=== PATIENT | female | born 1990 | race Caucasian/White ===

== ENCOUNTER 2016-06-13 20:04 | Emergency (ER) | payer OTHER ==
[~2016-06-13 20:04] MED LIST: ACET50TA PO; IBUP60TA PO; VITAPRTA PO
[2016-06-13] MEDS ORDERED: PANTOPRAZOLE 40MG INJ (PROTONIX) (C9113) As Ordered ONE (21:12)
[2016-06-13] MEDS ORDERED: ONDANSETRON 4MG/2ML VIAL (J2405) As Ordered ONE (21:13)
[2016-06-13 21:27] LABS: BASO % 0.2 % (0.0-1.0); EOS # 0.1 K/mm3 (0.0-0.50); EOS % 0.4 % (0.0-3.0); LARGE UNSTAINED CELL # 0.2 K/mm3 (0.0-0.4); LARGE UNSTAINED CELL % 1.1 % (0.0-4.0); LYMPH # 0.7 K/mm3 (1.5-6.5); LYMPH % 4.7 % (24.0-44.0); MEAN CORPUSCULAR HEMOGLOBIN 22.9 pg (27.0-33.0); MEAN CORPUSCULAR HGB CONC 31.1 g/dl (32.0-36.5); MEAN CORPUSCULAR VOLUME 73.8 fl (80.0-96.0); MONO # 0.5 K/mm3 (0.0-0.8); MONO % 3.3 % (0.0-5.0); NEUTROPHILS # 13.9 K/mm3 (1.8-7.7); NEUTROPHILS % 90.3 % (36.0-66.0); PLATELET COUNT, AUTOMATED 462 k/mm3 (150-450); RED CELL DISTRIBUTION WIDTH 15.5 % (11.5-14.5); WHITE BLOOD COUNT 15.4 K/mm3 (4.0-10.0)
[2016-06-13 21:54] LABS: ALBUMIN 4.3 GM/DL (3.2-5.2); ALBUMIN/GLOBULIN RATIO 0.98 (1.00-1.93); ALKALINE PHOSPHATASE 137 U/L (45-117); ALT/SGPT 113 U/L (12-78); AMYLASE 55 U/L (25-115); ANION GAP 11 MEQ/L (8-16); AST/SGOT 81 U/L (15-37); BILIRUBIN,DIRECT 0.2 MG/DL (0.0-0.2); BILIRUBIN,TOTAL 0.7 MG/DL (0.2-1.0); BLOOD UREA NITROGEN 14 MG/DL (7-18); CALCIUM LEVEL 9.4 MG/DL (8.5-10.1); CARBON DIOXIDE LEVEL 22 MEQ/L (21-32); CHLORIDE LEVEL 105 MEQ/L (98-107); CREATININE FOR GFR 0.84 MG/DL (0.55-1.02); GLOMERULAR FILTRATION RATE > 60.0 (>60); GLUCOSE, FASTING 103 MG/DL (70-105); POTASSIUM SERUM 4.3 MEQ/L (3.5-5.1); SODIUM LEVEL 138 MEQ/L (136-145); TOTAL PROTEIN 8.7 GM/DL (6.4-8.2)
--- NOTE | 2016-06-14 00:20 | EDDOCDS ---
Physician Documentation [facility] Name: Bella Carlisle Age: 25 yrs Sex: Female : 1990 Arrival Date: 06/13/2016 Time: 20:04 Bed I4 / M4 Private MD: ROHAN Caballero Disposition: 06/14/16 00:09 Discharged to Home/Self Care. Impression: Nausea and vomiting, Diarrhea, unspecified. - Condition is Stable. - Discharge Instructions: Food Choices to Help Relieve Diarrhea, Adult, Diarrhea, Nausea and Vomiting. - Prescriptions for Prilosec 20 mg Oral Capsule - take 1 capsule by ORAL route once daily; 10 capsule. ZOFRAN ODT 4 mg - dissolve 1 tablet by ORAL route 4 times per day As needed do not chew, do not swallow whole; 10 tablet. - Medication Reconciliation, Local Pharmacy Hours form. - Follow up: ROHAN Caballero; When: 2 - 3 days; Reason: Recheck today's complaints, Continuance of care. - Problem is new. - Symptoms have improved. Historical: - Allergies: No known drug Allergies; - Home Meds: 1. none - PMHx: GERD; - PSHx: Cholecystectomy; - Social history: Smoking status: Patient states was never smoker of tobacco. No barriers to communication noted, The patient speaks fluent Israeli, Speaks appropriately for age, Preferred Language: Israeli. - Family history: Not pertinent. - : The pt / caregiver states he / she is not on anticoagulants. Home medication list is obtained from the patient. - Exposure Risk Screening:: None identified. 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 6 in. (167.64 cm) (M); Pain 5/10; 22:26 BP 107 / 68; Pulse 116; Resp 18; Temp 100.4(O); Pulse Ox 100% on R/A; ld5 06/14 00:04 BP 115 / 74; Pulse 104; Resp 18; Temp 99.3; Pulse Ox 98% ; Pain 0/10; ajs 06/13 20:06 Body Mass Index 28.08 (78.93 kg, 167.64 cm) gr2 MDM: 06/13 21:01 Undress patient appropriately for examination ordered. ck7 21:01 UCG by Nursing ordered. ck7 21:01 IV Saline Lock ordered. ck7 21:01 NS 0.9% 1000 ml IV at bolus once ordered. ck7 21:01 NS 0.9% 1000 ml IV at bolus once ordered. ck7 21:01 pantoprazole 40 mg IV at bolus once ordered. ck7 21:01 Ondansetron 4 mg IVP once ordered. ck7 21:02 Amylase Ordered. EDMS 21:02 Basic Metabolic Profile Ordered. EDMS 21:02 CBC with Diff Ordered. EDMS 21:02 Lipase Ordered. EDMS 21:02 Liver Profile Ordered. EDMS 21:02 Urinalysis Ordered. EDMS 21:02 Urine Culture Ordered. EDMS 21:03 NOTHING BY MOUTH+DIET ordered. EDMS 21:13 Financial registration complete. ks16 21:15 [facility] Payment Agreement was scanned into [employer] and attached to record. ks16 22:25 CBC with Diff Reviewed. ck7 22:25 Liver Profile Reviewed. ck7 22:25 Urinalysis Reviewed. ck7 22:25 Amylase Reviewed. ck7 22:25 Basic Metabolic Profile Reviewed. ck7 22:25 Lipase Reviewed. ck7 23:17 Undo -Financial registration. ks16 23:44 Fluid Challenge ordered. ck7 06/14 00:07 Financial registration complete. pm4 Point of Care Testing: Urine : 06/13 21:03 hCG Reading: Negative; Control Reading: Positive; cln Ranges: Administered Medications: 21:24 Drug: NS 0.9% 1000 ml [sodium chloride 0.9 % intravenous solution] Route: IV; Rate: ld5 bolus; Site: right antecubital; 22:39 Follow up: IV Status: Completed infusion; IV Intake: 1000ml ld5 21:24 Drug: pantoprazole 40 mg [pantoprazole 40 mg intravenous solution] Route: IV; Rate: ld5 bolus; Site: right antecubital; 21:24 Drug: Ondansetron 4 mg [ondansetron HCl 2 mg/mL intravenous solution (2 mL)] Route: ld5 IVP; Site: right antecubital; 22:39 Follow up: Response: Nausea is decreased ld5 22:39 Drug: NS 0.9% 1000 ml [sodium chloride 0.9 % intravenous solution] Route: IV; Rate: ld5 bolus; Site: right antecubital; 23:52 Follow up: IV Status: Completed infusion rw1 Signatures: Dispatcher [employer] EDNC Jack Cisse LPN LPN rw1 Malinda Gilliland RN RN lf1 Chari Palmer RN RN [facility] Paul Gaffney, RPA-C RPA-Cck7 Cher Armstrong, Reg Reg ks16 Osbaldo Ospina, Reg Reg pm4 Erica Fortune RN ld5 The chart was reviewed and I authenticate all verbal orders and agree with the evaluation and treatment provided.Corrections: (The following items were deleted from the chart) 20:19 20:18 PMHx: none; lf1 lf1 Attachments: 21:15 [facility] Payment Agreement ks16 MTDD
--- NOTE | 2016-06-14 00:20 | EDDOCDS ---
Nurse's Notes [facility] Name: Bella Carlisle Age: 25 yrs Sex: Female : 1990 Arrival Date: 06/13/2016 Time: 20:04 Bed I4 / M4 Private MD: ROHAN Caballero Diagnosis: Nausea and vomiting;Diarrhea, unspecified Presentation: 06/13 20:14 Presenting complaint: Patient states: Diarrhea, nausea sore throat and fever that has lf1 been ongoing since last night. Pain is currently 4/10 and goes up to 8/10 if she "does anything". Pt states "I know I'm dehydrated and I have the stomach flu". Adult Sepsis Screening: The patient does not have new or worsening altered mentation. Patient's respiratory rate is less than 22. Systolic blood pressure is greater than 100. Patient has a qSOFA score of 0- Negative Sepsis Screen. Suicide/Homicide risk assessment- the patient denies having any suicidal and/or homicidal ideations and does not present with any other emotional, behavioral or mental health complaints. Status: The patient is a dependent. Transition of care: patient was not received from another setting of care. 20:14 Acuity: LAUREN Level 3 lf1 20:14 Method Of Arrival: Walkin/Carried/Asstd lf1 Triage Assessment: 20:18 General: Appears uncomfortable, Behavior is cooperative. Pain: Location: abdomen Pain lf1 currently is 4 out of 10 on a pain scale. Pt Declines HIV testing. Neurological: Level of Consciousness is awake, alert, Oriented to person, place, time. EENT: No deficits noted. Respiratory: Respiratory effort is even, unlabored. GI: Denies nausea, vomiting. Derm: Skin is normal. Injury Description: No known injury. 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 none - PMHx: GERD; - PSHx: Cholecystectomy; - Social history: Smoking status: Patient states was never smoker of tobacco. No barriers to communication noted, The patient speaks fluent Bruneian, Speaks appropriately for age, Preferred Language: Bruneian. - Family history: Not pertinent. - : The pt / caregiver states he / she is not on anticoagulants. Home medication list is obtained from the patient. - Exposure Risk Screening:: None identified. Screenin:20 Screening information is obtained from the patient. Fall risk: No risks identified. lf1 Assistance ADL's: requires no assistance with activities of daily living. Abuse/DV Screen: The patient / caregiver reports he/she is: not in a situation that causes fear, pain or injury. Nutritional screening: No deficits noted. Advance Directives: Currently, there is no health care proxy. There is no active DNR order. There is no living will. home support is adequate. Assessment: 21:22 General: Appears in no apparent distress, comfortable, Behavior is cooperative. Pain: cjh Denies pain. Neurological: Level of Consciousness is awake, alert, Oriented to person, place. Respiratory: Airway is patent Respiratory effort is even, unlabored, Respiratory pattern is regular, symmetrical. GI: Abdomen is non- distended Bowel sounds present X 4 quads. Abd is soft and non tender X 4 quads. 22:26 General: Pt laying quietly in bed. Fluids infusing. Pt denies further episodes of ld5 nausea. When asked about pain, pt states "my muscles ache but I think that is from my body relaxing after all of the shaking I was doing". Will continue to monitor. 22:39 General: Second bolus infusing. Pt resting quietly in bed. Will continue to monitor. ld5 06/14 00:17 Reassessment: Patient appears in no apparent distress at this time. Patient denies pain rw1 at this time. Patient states feeling better. Patient states symptoms have improved. Vital Signs: 06/13 20:06 BP 116 / 78; Pulse 137; Resp 18 S; Temp 100.6(O); Pulse Ox 98% on R/A; Weight 78.93 kg gr2 (M); Height 5 ft. 6 in. (167.64 cm) (M); Pain 5/10; 22:26 BP 107 / 68; Pulse 116; Resp 18; Temp 100.4(O); Pulse Ox 100% on R/A; ld5 06/14 00:04 BP 115 / 74; Pulse 104; Resp 18; Temp 99.3; Pulse Ox 98% ; Pain 0/10; ajs 06/13 20:06 Body Mass Index 28.08 (78.93 kg, 167.64 cm) gr2 Vitals: 06/13 20:06 Log In Time: June 13, 2016 at 20:06. gr2 ED Course: 20:05 Patient visited by Noemi Grant. gr2 20:05 Patient moved to Waiting gr2 20:[address] [facility] is Private Physician. gr2 20:09 Patient visited by Noemi Grant. gr2 20:09 Patient moved to Pre RCE gr2 20:17 Triage Initiated lf1 20:22 Patient moved to Triage 2 cln 20:32 Paul Gaffney RPA-C is PHCP. ck7 20:32 Carlos Rodriguez DO is Attending Physician. ck7 20:32 Patient visited by Paul Gaffney RPA-C. ck7 20:57 Patient moved to I4 / M4 cz 20:58 Patient visited by Viola Ellis. ajs 20:58 Pt greeted and oriented to ED. Patient advised of names of staff involved in care, ajs location of call genao, wait times and NPO status. Accompanied by Family Member, Patient has correct armband on for positive identification. Placed in gown. Bed in low position. Call light in reach. Side rails up X 1. 21:03 Patient visited by Brittany Tay PCA. cln 21:03 Urine Culture Sent. cln 21:03 Urinalysis Sent. cln 21:05 Patient visited by Viola Ellis. ajs 21:15 [facility] Payment Agreement was scanned into [employer] and attached to record. ks16 21:21 Amylase Sent. cjh 21:21 Basic Metabolic Profile Sent. cjh 21:21 CBC with Diff Sent. cjh 21:21 Lipase Sent. cjh 21:21 Liver Profile Sent. cjh 21:24 Patient visited by Erica Fortune,NENA. ld5 22:01 Patient visited by Paul Gaffney RPA-C. ck7 22:28 Patient visited by Erica Fortune,NENA. ld5 22:40 Patient visited by Erica Fortune,NENA. ld5 23:13 Patient visited by Paul Gaffney RPA-C. ck7 23:44 Patient visited by Paul Gaffney RPA-C. ck7 06/14 00:04 Patient visited by Viola Ellis. ajs 00:[address] [facility] is Referral Physician. ck7 00:17 The patient / caregiver is instructed regarding the plan of care and ED course. rw1 00:17 Discontinued IV lock intact, bleeding controlled, pressure dressing applied, No rw1 redness/swelling at site. No procedures done that require assistance. Administered Medications: 06/13 21:24 Drug: NS 0.9% 1000 ml [sodium chloride 0.9 % intravenous solution] Route: IV; Rate: ld5 bolus; Site: right antecubital; 22:39 Follow up: IV Status: Completed infusion; IV Intake: 1000ml ld5 21:24 Drug: pantoprazole 40 mg [pantoprazole 40 mg intravenous solution] Route: IV; Rate: ld5 bolus; Site: right antecubital; 21:24 Drug: Ondansetron 4 mg [ondansetron HCl 2 mg/mL intravenous solution (2 mL)] Route: ld5 IVP; Site: right antecubital; 22:39 Follow up: Response: Nausea is decreased ld5 22:39 Drug: NS 0.9% 1000 ml [sodium chloride 0.9 % intravenous solution] Route: IV; Rate: ld5 bolus; Site: right antecubital; 23:52 Follow up: IV Status: Completed infusion rw1 Point of Care Testing: Urine : 21:03 hCG Reading: Negative; Control Reading: Positive; cln Ranges: Intake: 22:39 IV: 1000.00ml; Total: 1000.00ml. ld5 23:53 IV: 2000.00ml (NS); Total: 3000.00ml. rw1 Order Results: Lab Order: Amylase; SPEC'M 06/13/16 21:14 Test: AMYLASE; Value: 55; Range: 25-115; Units: U/L; Status: F Lab Order: Basic Metabolic Profile; SPEC'M 06/13/16 21:14 Test: GLUCOSE, FASTING; Value: 103; Range: 70-105; Units: MG/DL; Status: F Test: BLOOD UREA NITROGEN; Value: 14; Range: 7-18; Units: MG/DL; Status: F Test: CREATININE FOR GFR; Value: 0.84; Range: 0.55-1.02; Units: MG/DL; Status: F Test: GLOMERULAR FILTRATION RATE; Value: > 60.0; Range: >60; Status: F Test: SODIUM LEVEL; Value: 138; Range: 136-145; Units: MEQ/L; Status: F Test: POTASSIUM SERUM; Value: 4.3; Range: 3.5-5.1; Units: MEQ/L; Status: F Test: CHLORIDE LEVEL; Value: 105; Range: 98-107; Units: MEQ/L; Status: F Test: CARBON DIOXIDE LEVEL; Value: 22; Range: 21-32; Units: MEQ/L; Status: F Test: ANION GAP; Value: 11; Range: 8-16; Units: MEQ/L; Status: F Test: CALCIUM LEVEL; Value: 9.4; Range: 8.5-10.1; Units: MG/DL; Status: F Test Note: ; Units are mL/min/1.73 m2 Chronic Kidney Disease Staging per NKF: Stage I & II GFR >=60 Normal to Mildly Decreased Stage III GFR 30-59 Moderately Decreased Stage IV GFR 15-29 Severely Decreased Stage V GFR <15 Very Little GFR Left ESRD GFR <15 on AVIONICS INTEGRATION ENGINEER Lab Order: CBC with Diff; SPEC'M 06/13/16 21:14 Test: WHITE BLOOD COUNT; Value: 15.4; Range: 4.0-10.0; Abnormal: Above high normal; Units: K/mm3; Status: F Test: RED BLOOD COUNT; Value: 5.88; Range: 4.00-5.40; Abnormal: Above high normal; Units: M/mm3; Status: F Test: HEMOGLOBIN; Value: 13.5; Range: 12.0-16.0; Units: g/dl; Status: F Test: HEMATOCRIT; Value: 43.4; Range: 36.0-47.0; Units: %; Status: F Test: MEAN CORPUSCULAR VOLUME; Value: 73.8; Range: 80.0-96.0; Abnormal: Below low normal; Units: fl; Status: F Test: MEAN CORPUSCULAR HEMOGLOBIN; Value: 22.9; Range: 27.0-33.0; Abnormal: Below low normal; Units: pg; Status: F Test: MEAN CORPUSCULAR HGB CONC; Value: 31.1; Range: 32.0-36.5; Abnormal: Below low normal; Units: g/dl; Status: F Test: RED CELL DISTRIBUTION WIDTH; Value: 15.5; Range: 11.5-14.5; Abnormal: Above high normal; Units: %; Status: F Test: PLATELET COUNT, AUTOMATED; Value: 462; Range: 150-450; Abnormal: Above high normal; Units: k/mm3; Status: F Test: NEUTROPHILS %; Value: 90.3; Range: 36.0-66.0; Abnormal: Above high normal; Units: %; Status: F Test: LYMPH %; Value: 4.7; Range: 24.0-44.0; Abnormal: Below low normal; Units: %; Status: F Test: MONO %; Value: 3.3; Range: 0.0-5.0; Units: %; Status: F Test: EOS %; Value: 0.4; Range: 0.0-3.0; Units: %; Status: F Test: BASO %; Value: 0.2; Range: 0.0-1.0; Units: %; Status: F Test: LARGE UNSTAINED CELL %; Value: 1.1; Range: 0.0-4.0; Units: %; Status: F Test: NEUTROPHILS #; Value: 13.9; Range: 1.8-7.7; Abnormal: Above high normal; Units: K/mm3; Status: F Test: LYMPH #; Value: 0.7; Range: 1.5-6.5; Abnormal: Below low normal; Units: K/mm3; Status: F Test: MONO #; Value: 0.5; Range: 0.0-0.8; Units: K/mm3; Status: F Test: EOS #; Value: 0.1; Range: 0.0-0.50; Units: K/mm3; Status: F Test: BASO #; Value: 0.0; Range: 0.0-0.2; Units: K/mm3; Status: F Test: LARGE UNSTAINED CELL #; Value: 0.2; Range: 0.0-0.4; Units: K/mm3; Status: F Lab Order: Lipase; SPEC' 06/13/16 21:14 Test: LIPASE; Value: 162; Range: 73-393; Units: U/L; Status: F Lab Order: Liver Profile; SPEC' 06/13/16 21:14 Test: AST/SGOT; Value: 81; Range: 15-37; Abnormal: Above high normal; Units: U/L; Status: F Test: ALT/SGPT; Value: 113; Range: 12-78; Abnormal: Above high normal; Units: U/L; Status: F Test: ALKALINE PHOSPHATASE; Value: 137; Range: 45-117; Abnormal: Above high normal; Units: U/L; Status: F Test: BILIRUBIN,TOTAL; Value: 0.7; Range: 0.2-1.0; Units: MG/DL; Status: F Test: BILIRUBIN,DIRECT; Value: 0.2; Range: 0.0-0.2; Units: MG/DL; Status: F Test: TOTAL PROTEIN; Value: 8.7; Range: 6.4-8.2; Abnormal: Above high normal; Units: GM/DL; Status: F Test: ALBUMIN; Value: 4.3; Range: 3.2-5.2; Units: GM/DL; Status: F Test: ALBUMIN/GLOBULIN RATIO; Value: 0.98; Range: 1.00-1.93; Abnormal: Below low normal; Status: F Lab Order: Urinalysis; [facility] 06/13/16 20:42 Test: APPEARANCE, URINE; Value: TURBID; Range: CLEAR; Abnormal: Above high normal; Status: F Test: COLOR, URINE; Value: YELLOW; Range: YELLOW; Status: F Test: PH,URINE; Value: 5.0; Range: 5.0-9.0; Units: UNITS; Status: F Test: SPECIFIC GRAVITY URINE AUTO; Value: 1.027; Range: 1.002-1.035; Status: F Test: PROTEIN, URINE AUTO; Value: 1+; Range: NEGATIVE; Abnormal: Above high normal; Units: mg/dL; Status: F Test: GLUCOSE, URINE (UA) AUTO; Value: NEGATIVE; Range: NEGATIVE; Units: mg/dL; Status: F Test: KETONE, URINE AUTO; Value: NEGATIVE; Range: NEGATIVE; Units: mg/dL; Status: F Test: UROBILINOGEN, URINE AUTO; Value: 0.2; Range: 0.0-2.0; Units: mg/dL; Status: F Test: BILIRUBIN, URINE AUTO; Value: NEGATIVE; Range: NEGATIVE; Status: F Test: NITRITE, URINE AUTO; Value: NEGATIVE; Range: NEGATIVE; Status: F Test: LEUKOCYTE ESTERASE, URINE AUTO; Value: 1+; Range: NEGATIVE; Abnormal: Above high normal; Status: F Test: BLOOD, URINE BLOOD; Value: 1+; Range: NEGATIVE; Abnormal: Above high normal; Status: F Test: WBC, URINE AUTO; Value: 12; Range: 0-3; Abnormal: Above high normal; Units: /HPF; Status: F Test: RBC, URINE AUTO; Value: 3; Range: 0-3; Units: /HPF; Status: F Test: BACTERIA, URINE AUTO; Value: 1+; Range: NEGATIVE; Abnormal: Above high normal; Status: F Test: SQUAMOUS EPITHELIAL CELL UR AU; Value: 18; Range: 0-6; Units: /HPF; Status: F Test: MUCUS, URINE; Value: LARGE; Range: NEGATIVE; Status: F Test: HYALINE CAST, URINE AUTO; Value: 0; Range: 0-1; Units: /LPF; Status: F Test: AMORPHOUS SEDIMENT; Value: LARGE; Range: NEGATIVE; Abnormal: Above high normal; Status: F Outcome: 06/14 00:09 Discharge ordered by Provider. ck7 00:17 Discharge Assessment: Patient awake, alert and oriented x 3. No cognitive and/or rw1 functional deficits noted. Patient verbalized understanding of disposition instructions. patient administered narcotics - no. The following High Risk Discharge criteria are identified: None. Discharged to home ambulatory, with significant other. Condition: stable Condition: improved. Discharge instructions given to patient, Instructed on discharge instructions, follow up and referral plans. medication usage, Demonstrated understanding of instructions, medications, Pt was receptive of discharge instructions/ teaching. Prescriptions given X 2. No special radiology studies were completed. Property sent home with patient. 00:19 Patient left the ED. rw1 Signatures: Nikhil Doyle, NENA RN Jack Roque LPN AUTOMATIC LATHE OPERATOR rw1 Malinda Gilliland RN RN lf1 Erica Fortune,RN RN ld5 Viola Ellis Jane, RN RN cjPaul Traylor, RPA-C RPA-Cck7 Noemi Grant gr2 Cher Armstrong, Reg Reg ks16 Brittany Tay, MANAGEMENT ACCOUNTS MANAGER MANAGEMENT ACCOUNTS MANAGER cln Corrections: (The following items were deleted from the chart) 06/13 20:19 20:18 PMHx: none; lf1 lf1 MTDD
--- NOTE | 2016-06-16 01:20 | EDDOCDS ---
Physician Documentation [facility] Name: Bella Carlisle Age: 25 yrs Sex: Female : 1990 Arrival Date: 06/13/2016 Time: 20:04 Bed I4 / M4 Private MD: ROHAN Caballero Disposition: 06/14/16 00:09 Discharged to Home/Self Care. Impression: Nausea and vomiting, Diarrhea, unspecified. - Condition is Stable. - Discharge Instructions: Food Choices to Help Relieve Diarrhea, Adult, Diarrhea, Nausea and Vomiting. - Prescriptions for Prilosec 20 mg Oral Capsule - take 1 capsule by ORAL route once daily; 10 capsule. ZOFRAN ODT 4 mg - dissolve 1 tablet by ORAL route 4 times per day As needed do not chew, do not swallow whole; 10 tablet. - Medication Reconciliation, Local Pharmacy Hours form. - Follow up: ROHAN Caballero; When: 2 - 3 days; Reason: Recheck today's complaints, Continuance of care. - Problem is new. - Symptoms have improved. Historical: - Allergies: No known drug Allergies; - Home Meds: 1. none - PMHx: GERD; - PSHx: Cholecystectomy; - Social history: Smoking status: Patient states was never smoker of tobacco. No barriers to communication noted, The patient speaks fluent Paraguayan, Speaks appropriately for age, Preferred Language: Paraguayan. - Family history: Not pertinent. - : The pt / caregiver states he / she is not on anticoagulants. Home medication list is obtained from the patient. - Exposure Risk Screening:: None identified. 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 6 in. (167.64 cm) (M); Pain 5/10; 22:26 BP 107 / 68; Pulse 116; Resp 18; Temp 100.4(O); Pulse Ox 100% on R/A; ld5 06/14 00:04 BP 115 / 74; Pulse 104; Resp 18; Temp 99.3; Pulse Ox 98% ; Pain 0/10; ajs 06/13 20:06 Body Mass Index 28.08 (78.93 kg, 167.64 cm) gr2 MDM: 06/13 21:01 Undress patient appropriately for examination ordered. ck7 21:01 UCG by Nursing ordered. ck7 21:01 IV Saline Lock ordered. ck7 21:01 NS 0.9% 1000 ml IV at bolus once ordered. ck7 21:01 NS 0.9% 1000 ml IV at bolus once ordered. ck7 21:01 pantoprazole 40 mg IV at bolus once ordered. ck7 21:01 Ondansetron 4 mg IVP once ordered. ck7 21:02 Amylase Ordered. EDMS 21:02 Basic Metabolic Profile Ordered. EDMS 21:02 CBC with Diff Ordered. EDMS 21:02 Lipase Ordered. EDMS 21:02 Liver Profile Ordered. EDMS 21:02 Urinalysis Ordered. EDMS 21:02 Urine Culture Ordered. EDMS 21:03 NOTHING BY MOUTH+DIET ordered. EDMS 21:13 Financial registration complete. ks16 21:15 [facility] Payment Agreement was scanned into [employer] and attached to record. ks16 22:25 CBC with Diff Reviewed. ck7 22:25 Liver Profile Reviewed. ck7 22:25 Urinalysis Reviewed. ck7 22:25 Amylase Reviewed. ck7 22:25 Basic Metabolic Profile Reviewed. ck7 22:25 Lipase Reviewed. ck7 23:17 Undo -Financial registration. ks16 23:44 Fluid Challenge ordered. ck7 06/14 00:07 Financial registration complete. pm4 11:00 T-Sheet-- Draft Copy was scanned into [employer] and attached to record. gb Point of Care Testing: Urine : 06/13 21:03 hCG Reading: Negative; Control Reading: Positive; cln Ranges: Administered Medications: 21:24 Drug: NS 0.9% 1000 ml [sodium chloride 0.9 % intravenous solution] Route: IV; Rate: ld5 bolus; Site: right antecubital; 22:39 Follow up: IV Status: Completed infusion; IV Intake: 1000ml ld5 21:24 Drug: pantoprazole 40 mg [pantoprazole 40 mg intravenous solution] Route: IV; Rate: ld5 bolus; Site: right antecubital; 21:24 Drug: Ondansetron 4 mg [ondansetron HCl 2 mg/mL intravenous solution (2 mL)] Route: ld5 IVP; Site: right antecubital; 22:39 Follow up: Response: Nausea is decreased ld5 22:39 Drug: NS 0.9% 1000 ml [sodium chloride 0.9 % intravenous solution] Route: IV; Rate: ld5 bolus; Site: right antecubital; 23:52 Follow up: IV Status: Completed infusion rw1 Signatures: Dispatcher [employer] EDMS Alma Delia Hendrickson, Reg Reg gb Jack Cisse,COURIER COURIER rw1 Malinda GillilandRN RN lf1 Chari Palmer,RN RN [facility] Paul Gaffney, RPA-C RPA-Cck7 Cher Armstrong, Reg Reg ks16 Osbaldo Ospina, Reg Reg pm4 Erica Fortune RN ld5 The chart was reviewed and I authenticate all verbal orders and agree with the evaluation and treatment provided.Corrections: (The following items were deleted from the chart) 20:19 20:18 PMHx: none; lf1 lf1 Attachments: 21:15 [facility] Payment Agreement ks16 06/14 11:00 T-Sheet-- Draft Copy gb Chart Complete MTDD
--- NOTE | 2016-06-16 01:20 | EDDOCDS ---
Nurse's Notes [facility] Name: Bella Carlisle Age: 25 yrs Sex: Female : 1990 Arrival Date: 06/13/2016 Time: 20:04 Bed I4 / M4 Private MD: ROHAN Caballero Diagnosis: Nausea and vomiting;Diarrhea, unspecified Presentation: 06/13 20:14 Presenting complaint: Patient states: Diarrhea, nausea sore throat and fever that has lf1 been ongoing since last night. Pain is currently 4/10 and goes up to 8/10 if she "does anything". Pt states "I know I'm dehydrated and I have the stomach flu". Adult Sepsis Screening: The patient does not have new or worsening altered mentation. Patient's respiratory rate is less than 22. Systolic blood pressure is greater than 100. Patient has a qSOFA score of 0- Negative Sepsis Screen. Suicide/Homicide risk assessment- the patient denies having any suicidal and/or homicidal ideations and does not present with any other emotional, behavioral or mental health complaints. Status: The patient is a dependent. Transition of care: patient was not received from another setting of care. 20:14 Acuity: LAUREN Level 3 lf1 20:14 Method Of Arrival: Walkin/Carried/Asstd lf1 Triage Assessment: 20:18 General: Appears uncomfortable, Behavior is cooperative. Pain: Location: abdomen Pain lf1 currently is 4 out of 10 on a pain scale. Pt Declines HIV testing. Neurological: Level of Consciousness is awake, alert, Oriented to person, place, time. EENT: No deficits noted. Respiratory: Respiratory effort is even, unlabored. GI: Denies nausea, vomiting. Derm: Skin is normal. Injury Description: No known injury. 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 none - PMHx: GERD; - PSHx: Cholecystectomy; - Social history: Smoking status: Patient states was never smoker of tobacco. No barriers to communication noted, The patient speaks fluent [place], Speaks appropriately for age, Preferred Language: Tanzanian. - Family history: Not pertinent. - : The pt / caregiver states he / she is not on anticoagulants. Home medication list is obtained from the patient. - Exposure Risk Screening:: None identified. Screenin:20 Screening information is obtained from the patient. Fall risk: No risks identified. lf1 Assistance ADL's: requires no assistance with activities of daily living. Abuse/DV Screen: The patient / caregiver reports he/she is: not in a situation that causes fear, pain or injury. Nutritional screening: No deficits noted. Advance Directives: Currently, there is no health care proxy. There is no active DNR order. There is no living will. home support is adequate. Assessment: 21:22 General: Appears in no apparent distress, comfortable, Behavior is cooperative. Pain: cjh Denies pain. Neurological: Level of Consciousness is awake, alert, Oriented to person, place. Respiratory: Airway is patent Respiratory effort is even, unlabored, Respiratory pattern is regular, symmetrical. GI: Abdomen is non- distended Bowel sounds present X 4 quads. Abd is soft and non tender X 4 quads. 22:26 General: Pt laying quietly in bed. Fluids infusing. Pt denies further episodes of ld5 nausea. When asked about pain, pt states "my muscles ache but I think that is from my body relaxing after all of the shaking I was doing". Will continue to monitor. 22:39 General: Second bolus infusing. Pt resting quietly in bed. Will continue to monitor. ld5 06/14 00:17 Reassessment: Patient appears in no apparent distress at this time. Patient denies pain rw1 at this time. Patient states feeling better. Patient states symptoms have improved. Vital Signs: 06/13 20:06 BP 116 / 78; Pulse 137; Resp 18 S; Temp 100.6(O); Pulse Ox 98% on R/A; Weight 78.93 kg gr2 (M); Height 5 ft. 6 in. (167.64 cm) (M); Pain 5/10; 22:26 BP 107 / 68; Pulse 116; Resp 18; Temp 100.4(O); Pulse Ox 100% on R/A; ld5 06/14 00:04 BP 115 / 74; Pulse 104; Resp 18; Temp 99.3; Pulse Ox 98% ; Pain 0/10; ajs 06/13 20:06 Body Mass Index 28.08 (78.93 kg, 167.64 cm) gr2 Vitals: 06/13 20:06 Log In Time: June 13, 2016 at 20:06. gr2 ED Course: 20:05 Patient visited by Noemi Grant. gr2 20:05 Patient moved to Waiting gr2 20:06 Federico [facility] is Private Physician. gr2 20:09 Patient visited by Noemi Grant. gr2 20:09 Patient moved to Pre RCE gr2 20:17 Triage Initiated lf1 20:22 Patient moved to Triage 2 cln 20:32 Paul Gaffney RPA-C is PHCP. ck7 20:32 Carlos Rodriguez DO is Attending Physician. ck7 20:32 Patient visited by Paul Gaffney RPA-C. ck7 20:57 Patient moved to I4 / M4 cz 20:58 Patient visited by Viola Ellis. ajs 20:58 Pt greeted and oriented to ED. Patient advised of names of staff involved in care, ajs location of call genao, wait times and NPO status. Accompanied by Family Member, Patient has correct armband on for positive identification. Placed in gown. Bed in low position. Call light in reach. Side rails up X 1. 21:03 Patient visited by Brittany Tay PCA. cln 21:03 Urine Culture Sent. cln 21:03 Urinalysis Sent. cln 21:05 Patient visited by Viola Ellis. ajs 21:15 [facility] Payment Agreement was scanned into [employer] and attached to record. ks16 21:21 Amylase Sent. cjh 21:21 Basic Metabolic Profile Sent. cjh 21:21 CBC with Diff Sent. cjh 21:21 Lipase Sent. cjh 21:21 Liver Profile Sent. cjh 21:24 Patient visited by Erica Fortune,NENA. ld5 22:01 Patient visited by Paul Gaffney RPA-C. ck7 22:28 Patient visited by Erica Fortune,NENA. ld5 22:40 Patient visited by Erica Fortune,NENA. ld5 23:13 Patient visited by Paul Gaffney RPA-C. ck7 23:44 Patient visited by Paul Gaffney RPA-C. ck7 06/14 00:04 Patient visited by Viola Ellis. ajs 00:09 Federico [facility] is Referral Physician. ck7 00:17 The patient / caregiver is instructed regarding the plan of care and ED course. rw1 00:17 Discontinued IV lock intact, bleeding controlled, pressure dressing applied, No rw1 redness/swelling at site. No procedures done that require assistance. 11:00 T-Sheet-- Draft Copy was scanned into [employer] and attached to record. gb Administered Medications: 06/13 21:24 Drug: NS 0.9% 1000 ml [sodium chloride 0.9 % intravenous solution] Route: IV; Rate: ld5 bolus; Site: right antecubital; 22:39 Follow up: IV Status: Completed infusion; IV Intake: 1000ml ld5 21:24 Drug: pantoprazole 40 mg [pantoprazole 40 mg intravenous solution] Route: IV; Rate: ld5 bolus; Site: right antecubital; 21:24 Drug: Ondansetron 4 mg [ondansetron HCl 2 mg/mL intravenous solution (2 mL)] Route: ld5 IVP; Site: right antecubital; 22:39 Follow up: Response: Nausea is decreased ld5 22:39 Drug: NS 0.9% 1000 ml [sodium chloride 0.9 % intravenous solution] Route: IV; Rate: ld5 bolus; Site: right antecubital; 23:52 Follow up: IV Status: Completed infusion rw Point of Care Testing: Urine : 21:03 hCG Reading: Negative; Control Reading: Positive; cln Ranges: Intake: 22:39 IV: 1000.00ml; Total: 1000.00ml. ld5 23:53 IV: 2000.00ml (NS); Total: 3000.00ml. rw Order Results: Lab Order: Amylase; SPEC'M 06/13/16 21:14 Test: AMYLASE; Value: 55; Range: 25-115; Units: U/L; Status: F Lab Order: Basic Metabolic Profile; SPEC'M 06/13/16 21:14 Test: GLUCOSE, FASTING; Value: 103; Range: 70-105; Units: MG/DL; Status: F Test: BLOOD UREA NITROGEN; Value: 14; Range: 7-18; Units: MG/DL; Status: F Test: CREATININE FOR GFR; Value: 0.84; Range: 0.55-1.02; Units: MG/DL; Status: F Test: GLOMERULAR FILTRATION RATE; Value: > 60.0; Range: >60; Status: F Test: SODIUM LEVEL; Value: 138; Range: 136-145; Units: MEQ/L; Status: F Test: POTASSIUM SERUM; Value: 4.3; Range: 3.5-5.1; Units: MEQ/L; Status: F Test: CHLORIDE LEVEL; Value: 105; Range: 98-107; Units: MEQ/L; Status: F Test: CARBON DIOXIDE LEVEL; Value: 22; Range: 21-32; Units: MEQ/L; Status: F Test: ANION GAP; Value: 11; Range: 8-16; Units: MEQ/L; Status: F Test: CALCIUM LEVEL; Value: 9.4; Range: 8.5-10.1; Units: MG/DL; Status: F Test Note: ; Units are mL/min/1.73 m2 Chronic Kidney Disease Staging per NKF: Stage I & II GFR >=60 Normal to Mildly Decreased Stage III GFR 30-59 Moderately Decreased Stage IV GFR 15-29 Severely Decreased Stage V GFR <15 Very Little GFR Left ESRD GFR <15 on OPERATOR COATING FURNACE Lab Order: CBC with Diff; SPEC'M 06/13/16 21:14 Test: WHITE BLOOD COUNT; Value: 15.4; Range: 4.0-10.0; Abnormal: Above high normal; Units: K/mm3; Status: F Test: RED BLOOD COUNT; Value: 5.88; Range: 4.00-5.40; Abnormal: Above high normal; Units: M/mm3; Status: F Test: HEMOGLOBIN; Value: 13.5; Range: 12.0-16.0; Units: g/dl; Status: F Test: HEMATOCRIT; Value: 43.4; Range: 36.0-47.0; Units: %; Status: F Test: MEAN CORPUSCULAR VOLUME; Value: 73.8; Range: 80.0-96.0; Abnormal: Below low normal; Units: fl; Status: F Test: MEAN CORPUSCULAR HEMOGLOBIN; Value: 22.9; Range: 27.0-33.0; Abnormal: Below low normal; Units: pg; Status: F Test: MEAN CORPUSCULAR HGB CONC; Value: 31.1; Range: 32.0-36.5; Abnormal: Below low normal; Units: g/dl; Status: F Test: RED CELL DISTRIBUTION WIDTH; Value: 15.5; Range: 11.5-14.5; Abnormal: Above high normal; Units: %; Status: F Test: PLATELET COUNT, AUTOMATED; Value: 462; Range: 150-450; Abnormal: Above high normal; Units: k/mm3; Status: F Test: NEUTROPHILS %; Value: 90.3; Range: 36.0-66.0; Abnormal: Above high normal; Units: %; Status: F Test: LYMPH %; Value: 4.7; Range: 24.0-44.0; Abnormal: Below low normal; Units: %; Status: F Test: MONO %; Value: 3.3; Range: 0.0-5.0; Units: %; Status: F Test: EOS %; Value: 0.4; Range: 0.0-3.0; Units: %; Status: F Test: BASO %; Value: 0.2; Range: 0.0-1.0; Units: %; Status: F Test: LARGE UNSTAINED CELL %; Value: 1.1; Range: 0.0-4.0; Units: %; Status: F Test: NEUTROPHILS #; Value: 13.9; Range: 1.8-7.7; Abnormal: Above high normal; Units: K/mm3; Status: F Test: LYMPH #; Value: 0.7; Range: 1.5-6.5; Abnormal: Below low normal; Units: K/mm3; Status: F Test: MONO #; Value: 0.5; Range: 0.0-0.8; Units: K/mm3; Status: F Test: EOS #; Value: 0.1; Range: 0.0-0.50; Units: K/mm3; Status: F Test: BASO #; Value: 0.0; Range: 0.0-0.2; Units: K/mm3; Status: F Test: LARGE UNSTAINED CELL #; Value: 0.2; Range: 0.0-0.4; Units: K/mm3; Status: F Lab Order: Lipase; SPEC'M 06/13/16 21:14 Test: LIPASE; Value: 162; Range: 73-393; Units: U/L; Status: F Lab Order: Liver Profile; SPEC'M 06/13/16 21:14 Test: AST/SGOT; Value: 81; Range: 15-37; Abnormal: Above high normal; Units: U/L; Status: F Test: ALT/SGPT; Value: 113; Range: 12-78; Abnormal: Above high normal; Units: U/L; Status: F Test: ALKALINE PHOSPHATASE; Value: 137; Range: 45-117; Abnormal: Above high normal; Units: U/L; Status: F Test: BILIRUBIN,TOTAL; Value: 0.7; Range: 0.2-1.0; Units: MG/DL; Status: F Test: BILIRUBIN,DIRECT; Value: 0.2; Range: 0.0-0.2; Units: MG/DL; Status: F Test: TOTAL PROTEIN; Value: 8.7; Range: 6.4-8.2; Abnormal: Above high normal; Units: GM/DL; Status: F Test: ALBUMIN; Value: 4.3; Range: 3.2-5.2; Units: GM/DL; Status: F Test: ALBUMIN/GLOBULIN RATIO; Value: 0.98; Range: 1.00-1.93; Abnormal: Below low normal; Status: F Lab Order: Urinalysis; SPEC'M 06/13/16 20:42 Test: APPEARANCE, URINE; Value: TURBID; Range: CLEAR; Abnormal: Above high normal; Status: F Test: COLOR, URINE; Value: YELLOW; Range: YELLOW; Status: F Test: PH,URINE; Value: 5.0; Range: 5.0-9.0; Units: UNITS; Status: F Test: SPECIFIC GRAVITY URINE AUTO; Value: 1.027; Range: 1.002-1.035; Status: F Test: PROTEIN, URINE AUTO; Value: 1+; Range: NEGATIVE; Abnormal: Above high normal; Units: mg/dL; Status: F Test: GLUCOSE, URINE (UA) AUTO; Value: NEGATIVE; Range: NEGATIVE; Units: mg/dL; Status: F Test: KETONE, URINE AUTO; Value: NEGATIVE; Range: NEGATIVE; Units: mg/dL; Status: F Test: UROBILINOGEN, URINE AUTO; Value: 0.2; Range: 0.0-2.0; Units: mg/dL; Status: F Test: BILIRUBIN, URINE AUTO; Value: NEGATIVE; Range: NEGATIVE; Status: F Test: NITRITE, URINE AUTO; Value: NEGATIVE; Range: NEGATIVE; Status: F Test: LEUKOCYTE ESTERASE, URINE AUTO; Value: 1+; Range: NEGATIVE; Abnormal: Above high normal; Status: F Test: BLOOD, URINE BLOOD; Value: 1+; Range: NEGATIVE; Abnormal: Above high normal; Status: F Test: WBC, URINE AUTO; Value: 12; Range: 0-3; Abnormal: Above high normal; Units: /HPF; Status: F Test: RBC, URINE AUTO; Value: 3; Range: 0-3; Units: /HPF; Status: F Test: BACTERIA, URINE AUTO; Value: 1+; Range: NEGATIVE; Abnormal: Above high normal; Status: F Test: SQUAMOUS EPITHELIAL CELL UR AU; Value: 18; Range: 0-6; Units: /HPF; Status: F Test: MUCUS, URINE; Value: LARGE; Range: NEGATIVE; Status: F Test: HYALINE CAST, URINE AUTO; Value: 0; Range: 0-1; Units: /LPF; Status: F Test: AMORPHOUS SEDIMENT; Value: LARGE; Range: NEGATIVE; Abnormal: Above high normal; Status: F Lab Order: Urine Culture; SPEC'M 06/13/16 20:42 Test: URINE CULTURE; Value: <EXTERNAL COMMENT eCWMed> FULL REPORT IN LAB NOTES (eCW and Medent).; Status: F Test: URINE CULTURE; Value: URINE CULTURE RESULT; Status: F Test: URINE CULTURE; Value: NO GROWTH CLINICAL SIGNIFICANCE 2 OR MORE ORGANISMS; Status: F Outcome: 06/14 00:09 Discharge ordered by Provider. ck7 00:17 Discharge Assessment: Patient awake, alert and oriented x 3. No cognitive and/or rw1 functional deficits noted. Patient verbalized understanding of disposition instructions. patient administered narcotics - no. The following High Risk Discharge criteria are identified: None. Discharged to home ambulatory, with significant other. Condition: stable Condition: improved. Discharge instructions given to patient, Instructed on discharge instructions, follow up and referral plans. medication usage, Demonstrated understanding of instructions, medications, Pt was receptive of discharge instructions/ teaching. Prescriptions given X 2. No special radiology studies were completed. Property sent home with patient. 00:19 Patient left the ED. rw1 Signatures: Nikhil Doyle, RN RN cz Alma Delia Hendrickson, Reg Reg gb Jack Cisse,FIGURE REFINISHER AND REPAIRER FIGURE REFINISHER AND REPAIRER rw1 Malinda Gilliland RN RN lf1 Erica Fortune RN RN ld5 Viola Ellis JaneRN RN [facility] Paul Gaffney, RPA-C RPA-Cck7 Noemi Grant gr2 Cher Armstrong, Reg Reg ks16 Brittany Tay, CRISTIANE DIRECTOR PRODUCT DEVELOPMENT cln Corrections: (The following items were deleted from the chart) 06/13 20:19 20:18 PMHx: none; lf1 lf1 Chart Complete MTDD
--- NOTE | 2016-06-16 01:20 | EDDOCDS ---
Physician Documentation [facility] Name: Bella Carlisle Age: 25 yrs Sex: Female : 1990 Arrival Date: 06/13/2016 Time: 20:04 Bed I4 / M4 Private MD: ROHAN Caballero Disposition: 06/14/16 00:09 Discharged to Home/Self Care. Impression: Nausea and vomiting, Diarrhea, unspecified. - Condition is Stable. - Discharge Instructions: Food Choices to Help Relieve Diarrhea, Adult, Diarrhea, Nausea and Vomiting. - Prescriptions for Prilosec 20 mg Oral Capsule - take 1 capsule by ORAL route once daily; 10 capsule. ZOFRAN ODT 4 mg - dissolve 1 tablet by ORAL route 4 times per day As needed do not chew, do not swallow whole; 10 tablet. - Medication Reconciliation, Local Pharmacy Hours form. - Follow up: ROHAN Caballero; When: 2 - 3 days; Reason: Recheck today's complaints, Continuance of care. - Problem is new. - Symptoms have improved. Historical: - Allergies: No known drug Allergies; - Home Meds: 1. none - PMHx: GERD; - PSHx: Cholecystectomy; - Social history: Smoking status: Patient states was never smoker of tobacco. No barriers to communication noted, The patient speaks fluent [place], Speaks appropriately for age, Preferred Language: [place]. - Family history: Not pertinent. - : The pt / caregiver states he / she is not on anticoagulants. Home medication list is obtained from the patient. - Exposure Risk Screening:: None identified. 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 6 in. (167.64 cm) (M); Pain 5/10; 22:26 BP 107 / 68; Pulse 116; Resp 18; Temp 100.4(O); Pulse Ox 100% on R/A; ld5 06/14 00:04 BP 115 / 74; Pulse 104; Resp 18; Temp 99.3; Pulse Ox 98% ; Pain 0/10; ajs 06/13 20:06 Body Mass Index 28.08 (78.93 kg, 167.64 cm) gr2 MDM: 06/13 21:01 Undress patient appropriately for examination ordered. ck7 21:01 UCG by Nursing ordered. ck7 21:01 IV Saline Lock ordered. ck7 21:01 NS 0.9% 1000 ml IV at bolus once ordered. ck7 21:01 NS 0.9% 1000 ml IV at bolus once ordered. ck7 21:01 pantoprazole 40 mg IV at bolus once ordered. ck7 21:01 Ondansetron 4 mg IVP once ordered. ck7 21:02 Amylase Ordered. EDMS 21:02 Basic Metabolic Profile Ordered. EDMS 21:02 CBC with Diff Ordered. EDMS 21:02 Lipase Ordered. EDMS 21:02 Liver Profile Ordered. EDMS 21:02 Urinalysis Ordered. EDMS 21:02 Urine Culture Ordered. EDMS 21:03 NOTHING BY MOUTH+DIET ordered. EDMS 21:13 Financial registration complete. ks16 21:15 [facility] Payment Agreement was scanned into [employer] and attached to record. ks16 22:25 CBC with Diff Reviewed. ck7 22:25 Liver Profile Reviewed. ck7 22:25 Urinalysis Reviewed. ck7 22:25 Amylase Reviewed. ck7 22:25 Basic Metabolic Profile Reviewed. ck7 22:25 Lipase Reviewed. ck7 23:17 Undo -Financial registration. ks16 23:44 Fluid Challenge ordered. ck7 06/14 00:07 Financial registration complete. pm4 11:00 T-Sheet-- Draft Copy was scanned into [employer] and attached to record. gb Point of Care Testing: Urine : 06/13 21:03 hCG Reading: Negative; Control Reading: Positive; cln Ranges: Administered Medications: 21:24 Drug: NS 0.9% 1000 ml [sodium chloride 0.9 % intravenous solution] Route: IV; Rate: ld5 bolus; Site: right antecubital; 22:39 Follow up: IV Status: Completed infusion; IV Intake: 1000ml ld5 21:24 Drug: pantoprazole 40 mg [pantoprazole 40 mg intravenous solution] Route: IV; Rate: ld5 bolus; Site: right antecubital; 21:24 Drug: Ondansetron 4 mg [ondansetron HCl 2 mg/mL intravenous solution (2 mL)] Route: ld5 IVP; Site: right antecubital; 22:39 Follow up: Response: Nausea is decreased ld5 22:39 Drug: NS 0.9% 1000 ml [sodium chloride 0.9 % intravenous solution] Route: IV; Rate: ld5 bolus; Site: right antecubital; 23:52 Follow up: IV Status: Completed infusion rw1 Signatures: Dispatcher [employer] EDMS Alma Delia Hendrickson, Reg Reg gb Jack Cisse,PRODUCTION LINE TECHNICIAN PRODUCTION LINE TECHNICIAN rw1 Malinda GillilandRN RN lf1 Chari Palmer,RN RN [facility] Paul Gaffney, RPA-C RPA-Cck7 Cher Armstrong, Reg Reg ks16 Osbaldo Osipna, Reg Reg pm4 Erica Fortune RN ld5 The chart was reviewed and I authenticate all verbal orders and agree with the evaluation and treatment provided.Corrections: (The following items were deleted from the chart) 20:19 20:18 PMHx: none; lf1 lf1 Attachments: 21:15 [facility] Payment Agreement [email or web address] 06/14 11:00 T-Sheet-- Draft Copy gb Chart Complete MTDD
== END 2016-06-14 00:19 | disposition home or self-care (01) ==
LOC: M ED 20:04
DX: R11.2 Nausea with vomiting, unspecified (principal); R19.7 Diarrhea, unspecified; K21.9 Gastro-esophageal reflux disease without esophagitis
CPT/HCPCS: 80048; 80076; 81001; 81025; 82150; 83690; 85025; 87086; 96361; 96374; 96375; 99284; C9113; J2405

== ENCOUNTER 2017-01-21 13:46 | Emergency (ER) | payer OTHER ==
[2015-10-09 05:16] VITALS: BP 114/71
== END 2017-01-21 14:46 | disposition left against medical advice (07) ==
LOC: M ED 13:46
DX: R10.2 Pelvic and perineal pain (principal); Z53.21 Procedure and treatment not carried out due to patient leaving prior to being seen by health care provider

== ENCOUNTER 2017-01-23 14:01 | Emergency (ER) | payer OTHER ==
[~2017-01-23] VITALS: Ht 170.2 cm; Wt 79.5 kg
--- NOTE | 2017-01-23 15:54 | REP ---
Clinical: Pelvic pain and vaginal bleeding . Technique: Transabdominal pelvic ultrasound followed by transvaginal examination for better evaluation of the endometrium and adnexa with color Doppler evaluation of the ovaries. Findings: the Bladder is unremarkable and measures 4.8 x 1.7 x 5.1 cm Normal anteverted uterus measures 8.8 x 4.6 x 6.0 cm. The endometrial complex measures 7.6 mm thickness. No discrete uterine or endometrial abnormalities are appreciated. Bilateral ovaries are normal in appearance and vascularity without evidence for torsion. Right ovary measures 3.3 x 1.9 x 2.3 cm ; R I = 0.57 . Left ovary measures 2.9 x 1.5 x 2.8 cm ; R I = 0.65 . No pelvic fluid or adnexal mass lesion . Impression: 1. normal pelvic ultrasound. No torsion. No free fluid. Signed by Sulaiman Hackett MD 01/23/2017 03:46 P
[2017-01-23 16:05] VITALS: BP 129/72
== END 2017-01-23 16:07 | disposition home or self-care (01) ==
LOC: M ED 14:01
DX: N93.9 Abnormal uterine and vaginal bleeding, unspecified (principal); Z87.59 Personal history of other complications of pregnancy, childbirth and the puerperium

== ENCOUNTER → 2017-07-14 | Outpatient (CLI) | payer OTHER | LOC: M LRY 19:22 | DX: S69.91XA Unspecified injury of right wrist, hand and finger(s), initial encounter (principal); X58.XXXA Exposure to other specified factors, initial encounter; Y92.89 Other specified places as the place of occurrence of the external cause | CPT/HCPCS: 73110; G0463 ==

== ENCOUNTER 2018-02-18 12:16 | Emergency (ER) | payer OTHER | END 2018-02-18 14:10 | disposition home or self-care (01) | LOC: M ED 12:16 | DX: S83.92XA Sprain of unspecified site of left knee, initial encounter (principal); X50.9XXA Other and unspecified overexertion or strenuous movements or postures, initial encounter; Y92.830 Public park as the place of occurrence of the external cause | CPT/HCPCS: 73564 ==